=== PATIENT | female | born 1980 | race Caucasian/White ===

== ENCOUNTER 2018-09-03 10:19 | Emergency (ER) | payer OTHER ==
[2018-09-03] MEDS ORDERED: Ondansetron PF 4 MG/2 ML Vial ONE (11:50)
[2018-09-03 11:57] LABS: #Basophils 0.1 thou/uL (0.0-0.2); #Eosinphils 0.4 thou/uL (0.0-0.7); #Lymphocytes 2.7 thou/uL (1.20-3.40); #Monocytes 0.6 thou/uL (0.11-0.59); #Neutrophils 10.9 thou/uL (1.40-6.50); %Basophils 0.7 % (0.0-1.0); %Eosinophils 2.9 % (0.0-10.0); %Lymphocytes 18.1 % (21.0-51.0); %Monocytes 3.9 % (0.0-10.0); %Neutrophils 74.4 % (42.0-75.0); Hemoglobin 15.2 g/dL (12.0-16.0); Mean Corpuscular HGB CONC 33.7 g/dL (32.0-36.0); Mean Corpuscular Hemoglobin 28.5 pg (27.0-31.0); Mean Corpuscular Volume 84.5 fL (78.0-98.0); Platelet Count 258 thou/uL (130-400); RBC Distribution Width 13.7 % (11.5-14.5); Red Blood Cell (RBC) Count 5.35 mill/uL (4.20-5.40); White Blood Cell (WBC) Count 14.6 thou/uL (4.8-10.8)
[2018-09-03 12:05] LABS: BHCG - Serum Negative (NEGATIVE); Pregs Control Background? CLEAR/WHITE (CLR/WHITE); Pregs Control Bar Appear? YES (CONTROL BAR)
[2018-09-03 12:10] LABS: Bilirubin Small (Negative); Blood, Urine Negative (Negative); Clarity CLOUDY (Clear); Glucose, Urine (Dipstick) Negative (Negative); Leukocyte Small (Negative); Nitrite Negative (Negative); Protein, Urine (Dipstick) Trace mg/dL (Neg-Trace); Specific Gravity, Urine 1.021 (1.002-1.036)
[2018-09-03 12:11] LABS: Bacteria/HPF 1+ HPF (None Seen); Hyaline Casts/LPF 4-6 HYALINE CAST LPF (0-3 Hyaline); Pathc Cast-AUWi Flag 0.95 (0-2.49)
[2018-09-03] MEDS ORDERED: Dicyclomine 20 MG TAB ONE (12:35)
[2018-09-03 12:36] LABS: ALT (SGPT) 52 U/L (8-55); AST (SGOT) 34 U/L (5-34); Albumin 4.3 g/dL (3.5-5.0); Alkaline Phosphatase 86 U/L (40-150); Anion Gap 12 mmol/L (10-20); BUN (Urea Nitrogen) 12 mg/dL (7.0-18.7); Bilirubin, Total 1.1 mg/dL (0.2-1.2); Calc. Creatinine Clearance 0 mL/min (70-130); Calcium 9.7 mg/dL (7.8-10.44); Carbon Dioxide 28 mmol/L (22-29); Chloride 100 mmol/L (98-107); Estimated GFR-MDRD 69; Globulin 3.8 g/dL (2.4-3.5); Glucose 102 mg/dL (70-105); Lipase 17 U/L (8-78); Potassium 3.6 mmol/L (3.5-5.1); Protein, Total 8.1 g/dL (6.0-8.3); Sodium 136 mmol/L (136-145)
== END 2018-09-03 12:50 | disposition home or self-care (01) ==
LOC: ERS 10:19
DX: R11.2 Nausea with vomiting, unspecified (principal); R10.9 Unspecified abdominal pain; E03.9 Hypothyroidism, unspecified; F32.9 Major depressive disorder, single episode, unspecified
CPT/HCPCS: 80053; 81003; 81015; 83690; 84703; 85025; 87086; 96361; 96374; J2405

== ENCOUNTER 2018-09-03 18:02 | Observation (INO) | payer OTHER ==
[~2018-09-03 18:02] MED LIST: ISOVUE-370 76%-LOCM 1 ML ONE
[2018-09-03 21:12] LABS: #Basophils 0.1 thou/uL (0.0-0.2); #Eosinphils 0.5 thou/uL (0.0-0.7); #Lymphocytes 3.4 thou/uL (1.20-3.40); #Monocytes 0.8 thou/uL (0.11-0.59); #Neutrophils 12.6 thou/uL (1.40-6.50); %Basophils 0.4 % (0.0-1.0); %Eosinophils 3.1 % (0.0-10.0); %Lymphocytes 19.4 % (21.0-51.0); %Monocytes 4.7 % (0.0-10.0); %Neutrophils 72.4 % (42.0-75.0); Hemoglobin 14.3 g/dL (12.0-16.0); Mean Corpuscular HGB CONC 33.3 g/dL (32.0-36.0); Mean Corpuscular Hemoglobin 28.7 pg (27.0-31.0); Mean Corpuscular Volume 86.2 fL (78.0-98.0); Mean Platelet Volume 7.9 fL (7.4-10.4); Platelet Count 257 thou/uL (130-400); RBC Distribution Width 13.7 % (11.5-14.5); Red Blood Cell (RBC) Count 4.99 mill/uL (4.20-5.40); White Blood Cell (WBC) Count 17.4 thou/uL (4.8-10.8)
[2018-09-03] MEDS ORDERED: Ondansetron PF 4 MG/2 ML Vial ONE (21:25)
[2018-09-03 21:31] LABS: ALT (SGPT) 47 U/L (8-55); AST (SGOT) 30 U/L (5-34); Albumin 4.2 g/dL (3.5-5.0); Alkaline Phosphatase 84 U/L (40-150); Anion Gap 12 mmol/L (10-20); BUN (Urea Nitrogen) 12 mg/dL (7.0-18.7); Calc. Creatinine Clearance 0 mL/min (70-130); Calcium 9.5 mg/dL (7.8-10.44); Carbon Dioxide 27 mmol/L (22-29); Chloride 102 mmol/L (98-107); Estimated GFR-MDRD 62; Globulin 3.6 g/dL (2.4-3.5); Glucose 98 mg/dL (70-105); Lipase 162 U/L (8-78); Potassium 3.6 mmol/L (3.5-5.1); Protein, Total 7.8 g/dL (6.0-8.3); Sodium 137 mmol/L (136-145)
[2018-09-03] MEDS ORDERED: Morphine 4 MG/ML VIAL ONE (21:40)
[2018-09-03 22:00] LABS: Bilirubin Moderate (Negative); Blood, Urine Trace (Negative); Clarity CLOUDY (Clear); Glucose, Urine (Dipstick) Negative (Negative); Leukocyte Negative (Negative); Nitrite Negative (Negative); Protein, Urine (Dipstick) 100 mg/dL (Neg-Trace); Specific Gravity, Urine 1.025 (1.002-1.036)
[2018-09-03 22:03] LABS: Bacteria/HPF Rare-Few HPF (None Seen); Hyaline Casts/LPF 0-3 HYALINE CAST LPF (0-3 Hyaline); Pathc Cast-AUWi Flag 0.68 (0-2.49)
[2018-09-03 22:16] LABS: Yeast-AUWi Flag 43.8 (0-25.0)
[2018-09-03 22:17] LABS: Crystals/HPF RARE CA OXALATE HPF (Negative); RBC/HPF 0-3 HPF (0-3); Yeast-All Forms None Seen HPF (None Seen)
[2018-09-03] MEDS ORDERED: Piperacillin/Tazobactam 4.5 GM VIAL ONE (22:35)
[2018-09-03] MEDS ORDERED: Sodium Chloride 0.9% 100 ML ONE (22:35)
--- NOTE | 2018-09-03 23:39 | CT ---
CT ABDOMEN AND PELVIS WITH CONTRAST: History: Epigastric abdominal pain. Comparison: None. FINDINGS: The lung bases are clear. No pericardial effusion. There appears to be diffuse hepatic steatosis. The spleen is enlarged measuring 15 cm in length. There is an abnormal round, what appears to be a lymph node, in the anterior pararenal space measurin g 2.2 cm in size. There is some mucosal edema throughout the terminal ileum, distal ileum, sigmoid co claire, descending colon and cecum. There appears to be small diverticula of the cecum and ascending col on and much less likely small foci of free air as well as foci of gas which do abutt the wall of the respective bowel. No free air under the transverse fascia is appreciated. Moderate volume of free flu id in the dependent pelvis. Numerous small periaortic lymph nodes are present. Increased mesenteric fat of the distal ileum. The celiac trunk and superior mesenteric arteries are patent. IMPRESSION: 1. Severe distal ileum, terminal ileum, sigmoid colon, inflammation suggesting ileitis and colitis. G iven these findings and patient age, findings are concerning for inflammatory bowel disease such as C rohn's. There is increased mesenteric fat, hypermia, as well as edema within the mesenteric folds, as well as a moderate volume of free fluid in the pelvis. 2. Small foci of gas adjacent to the terminal ileum, axial image 81, coronal image 77 abut the serosa and reflect a small diverticulum with indwelling gas. No definite free fluid is appreciated although a small micro perforation is a possibility near the distal terminal ileum. Follow up examination is recommended. 3. Abnormally enlarged 2.2 cm anterior right perirenal lymph node may be reactive. Follow up imaging is recommended. 4. Mild splenomegaly. 5. Diffuse hepatic steatosis. 6. Patent proximal superior mesenteric artery. POS: [facility]
[2018-09-04] MEDS ORDERED: Ondansetron PF 4 MG/2 ML Vial IVP PRN ×2 (02:12→12:59)
[2018-09-04] MEDS: Morphine 4 MG/ML VIAL SLOW IVP PRN ×4 (02:34→19:54)
[2018-09-04] MEDS: Sodium Chloride 0.9% 1,000 ML IV SCH ×2 (02:35→10:43)
[2018-09-04 03:44] VITALS: BMI 58.2
[2018-09-04] MEDS ORDERED: Piperacillin/Tazobactam 3.375 GM in Sodium Chloride 0.9% 100 ML IVPB SCH (06:00)
[2018-09-04] MEDS ORDERED: Morphine 4 MG/ML VIAL SLOW IVP PRN (12:59)
[2018-09-04] MEDS: D5 1/2 NS w/20 mEq KCL 1,000 ML IV SCH (14:32)
[2018-09-04] MEDS: Piperacillin/Tazobactam 3.375 GM in Sodium Chloride 0.9% 100 ML IVPB SCH ×2 (14:33→19:53)
--- NOTE | 2018-09-04 14:51 | HP ---
CHIEF COMPLAINT: Abdominal pain. HISTORY OF PRESENT ILLNESS: Ms. Abreu is a 38-year-old woman with abdominal pain, nausea, vomiting, and diarrhea since Monday. She states that she started feeling bad on Monday morning with crampy periumbilical abdominal pain. She had several episodes of nonbloody diarrhea and also threw out several times. On the next day, her symptoms continued, although the diarrhea slowed down. She was still throwing up. She did not really have any high fevers or chills, but the crampy pain was becoming more severe. Yesterday the pain was bad enough, she decided to come to the emergency room. She was sent home with an antispasmodics, which did not help, so she returned to the emergency room that evening, at which time, she underwent a CT scan, which showed inflammatory changes in both the small and large intestine. An air pocket outside of the terminal ileum was felt to either be a diverticulum or contained perforation, but she did not have any free air. Her lipase was mildly elevated and her white count was elevated as well. So, she was placed on IV antibiotics and admitted for observation. She states that today the nausea is better, but the pain still comes back after the morphine wears off. Currently, she is quite comfortable; however, and she states that she is definitely feeling better today compared to yesterday. She denies any similar episodes in the past and has otherwise been fairly healthy. She does not have any chronic diarrhea or abdominal problems. PAST MEDICAL HISTORY: Hypothyroidism, morbid obesity, and obstructive sleep apnea. PAST SURGICAL HISTORY: Ankle surgery and empyema. No abdominal surgeries. SOCIAL HISTORY: The patient drinks rarely and not to excess. She denies any drug use and does not smoke. OUTPATIENT MEDICATIONS: None. She is supposed to be on Synthroid, but moved here last fall and has not established care with the primary care doctor. So, she has not taken her Synthroid since about March. ALLERGIES: NO KNOWN DRUG ALLERGIES. INPATIENT MEDICATIONS: Include; 1. Zosyn. 2. Zofran. 3. Morphine. PHYSICAL EXAMINATION: VITAL SIGNS: The patient has been afebrile since her admission, heart rate 71, respirations 24, 96% saturated on 2 L nasal cannula, and blood pressure 121/74. GENERAL: Reveals a morbidly obese young woman, in no acute distress. BMI of 58. HEENT: Unremarkable. NECK: Supple without lymphadenopathy or thyroid nodules. HEART: Regular in its rate and rhythm. Heart sounds and breath sounds are both very distant due to body habitus. ABDOMEN: Reveals slight hyperactive bowel sounds. She has diffuse mild tenderness to palpation without rigidity, rebound, or guarding. No palpable masses or hernias. EXTREMITIES: Warm and well perfused without edema. NEURO: No focal deficits. PSYCHIATRIC: Alert, oriented, and appropriate. LABORATORY DATA: White count is mildly elevated at 17 and lipase is mildly elevated at 162. Other LFTs are unremarkable and electrolytes are normal. CT images are reviewed, although the quality is somewhat poor due to body habitus. I do agree with the written report, it shows mild inflammatory changes of both small and large intestine and the finding that the distal ileum is most consistent with a diverticulum. ASSESSMENT AND PLAN: Enteritis/colitis. The radiologist was concerned about inflammatory bowel disease being within the differential, but the patient does not have any preceding or chronic gastrointestinal complaints. I feel that this is most likely infectious or inflammatory and more likely viral than not. Her nausea has resolved. So, I am going to start her on some clear liquids, but continue the antibiotics for now. I have asked Gastroenterology to take a look at her, but do not feel that there is any need for acute intervention. If her symptoms resolve, she will likely be discharged home in the near future. Job ID: [id number]
--- NOTE | 2018-09-04 15:22 | ULT ---
RIGHT UPPER QUADRANT ULTRASOUND: INDICATION: Elevated liver function tests. COMPARISON: Correlation is made to CT of 09/03/2018. FINDINGS: The liver shows mild increased echogenicity suggesting fatty infiltration consistent with the CT find ings. The gallbladder is mildly distended. There is at least 1 echogenic gallstone seen in the neck of the gallbladder. This measures approximately 2 cm. The common bile duct is normal caliber. Gallbladder wall is normal thickness. Pancreas is partially obscured but appears unremarkable as imaged. The right kidney is imaged and appears unremarkable. IMPRESSION: 1. Cholelithiasis. 2. Mild hepatic steatosis. POS: [facility]
--- NOTE | 2018-09-04 19:37 | CON ---
DATE OF CONSULTATION: 09/04/2018 REASON FOR CONSULTATION: Nausea, vomiting, diarrhea, and abnormal CAT scan of the abdomen and pelvis. HISTORY OF PRESENT ILLNESS: Ms. Abreu is a very pleasant 38-year-old, who initially came to the emergency room yesterday morning for nausea, vomiting, and abdominal pain, was treated symptomatically and discharged home with some Bentyl and Zofran. There was really no diagnosis on the discharge summary, but they have noted lot of things were ruled out. It seems that she was felt to have an uncomplicated gastroenteritis. She returned; however, with persistent symptoms yesterday evening mainly with mid abdominal cramping, severe periumbilical cramping, inability to hold anything down with nausea, vomiting, and loose stools. She has stable vital signs, but underwent a CAT scan that showed some inflammatory changes in the ileum and cecum, possibly microperforation and she was admitted to General Surgery after being started on antibiotics. Talked with the patient, she states that she was in normal state of health with no prior or antecedent abdominal problems when on the early in the morning of Monday, the , she woke with severe periumbilical abdominal cramping and then had a couple episodes of nonbloody diarrhea, which became progressively looser and had several episodes of vomiting until she began to have dry heaves. She had no high fever or chills. She notes that she had felt fine when she went to bed Monday night and she had eaten a [employer] for dinner that night. She had no sick contacts at home with her and 2 children, so she thought she maybe just got some food poisoning, although when she could not get comfortable and still was sick through all day Monday and Monday, she came to the hospital on Monday morning. She got some IV fluids and antispasmodics, but when she was not having improvement, she came back last night. She had a CAT scan that showed inflammatory changes in the terminal ileum and cecal area. She also has some adenopathy in this area as well. She had elevated white count about 17,000. She was placed on IV fluids, antibiotics, and admitted. Presently, she states that nausea is much better. She is tolerating clear liquids this evening. She does have some pain as morphine wears off. She has not had anything like this in the past. She has no history of arthralgias, rashes, or myalgias. No family history of inflammatory bowel disease or Crohn disease in herself or family members. PAST MEDICAL HISTORY: Hypothyroidism, obesity, and sleep apnea. PAST SURGICAL HISTORY: Ankle surgery and empyema. No prior abdominal surgeries. SOCIAL HISTORY: The patient drinks rarely and not to excess less than once a month. Denies drug use. She does not smoke. MEDICATIONS: At home, she is not taking anything. She supposed to take Synthroid, but she has been off that since March. ALLERGIES: NONE KNOWN. INPATIENT MEDICATIONS: Inpatient, she has received; 1. Zofran. 2. Zosyn. 3. IV fluids. 4. Some morphine. REVIEW OF SYSTEMS: RESPIRATORY: Negative. CARDIAC: Negative. : Negative. GENERAL: Negative for fever, rashes, myalgias, or weight loss. Before this started, she was having no change in bowel function, nausea, vomiting, abdominal pain, hematemesis, melena, or hematochezia. PHYSICAL EXAMINATION: GENERAL: The patient is resting comfortably in bed. She is actually getting up walking around. She is overweight. She is resting comfortably in bed. VITAL SIGNS: Temperature, she has been afebrile since admission, she is 98. Pulse is 82 and blood pressure is 130/79. HEENT: Oropharynx, no lesions. Oropharynx is moist. NECK: Supple without any adenopathy. LUNGS: Clear. HEART: Regular rate and rhythm. No rubs, gallops, or murmurs. ABDOMEN: Soft and obese. There is no palpable hepatosplenomegaly. There is no rebound. There is no guarding. EXTREMITIES: No clubbing, cyanosis, or edema. LABORATORY STUDIES: White count is 2100 and last night was 17.4, hemoglobin was 14, and platelet count 257. White count had been 14 at 11 on the . Comprehensive metabolic profile was normal with lipase of 162 at 2100 hours last night and 17 at 11:30 yesterday afternoon. Urinalysis showed white blood cells and possible squamous cells. Microbiology; urine culture showed skin humaira. No stool samples were obtained. ASSESSMENT: Acute onset nausea, vomiting, diarrhea, and severe abdominal pain with associated inflammatory changes in the cecum and ileum region. I have reviewed the patient's films and also some inflammation in the sigmoid colon. It appears similar findings have increased mesenteric fat hyperemia and some adenopathy raise concern for possible Crohn disease, but the acute presentation and the lack of any antecedent symptoms or signs of anemia makes this less likely. There is a small foci of gas to the terminal ileum and a small diverticulum in this area. Diverticulitis in the right colon is not regular. However, 1 factor that raises concern for possible more chronic process is the fact that she had a 2.2 cm anterior right perirenal lymph node and some mild splenomegaly. RECOMMENDATIONS: At this time, we will go and continue the IV fluids and IV antibiotics. I would continue to monitor her labs. We will check a CBC again tomorrow. If she has any decompensation of abdominal status, she may need an exploratory laparotomy, but I think that is unlikely to happen and would not recommend urgent endoscopy with questionable signs of free air. If there is that much inflammation in abdomen, it could cause perforation. We will follow along with you at this point in time and further course will determine further recommendations and treatment. Job ID: [id number]
[2018-09-04] MEDS: Acetaminophen 1,000 MG in Premix Bag 1 BAG IVPB PRN (19:53)
[2018-09-04] MEDS: Famotidine/PF 20 mg/2ml Vial SLOW IVP SCH (20:01)
[2018-09-05] MEDS: Piperacillin/Tazobactam 3.375 GM in Sodium Chloride 0.9% 100 ML IVPB SCH ×2 (02:20→08:47)
[2018-09-05] MEDS: D5 1/2 NS w/20 mEq KCL 1,000 ML IV SCH ×5 (02:32→22:24)
[2018-09-05] MEDS: Morphine 4 MG/ML VIAL SLOW IVP PRN ×2 (04:54→22:20)
[2018-09-05] MEDS: Acetaminophen 1,000 MG in Premix Bag 1 BAG IVPB PRN (04:54)
[2018-09-05 06:58] LABS: #Basophils 0.1 thou/uL (0.0-0.2); #Eosinphils 0.4 thou/uL (0.0-0.7); #Lymphocytes 1.7 thou/uL (1.20-3.40); #Monocytes 0.5 thou/uL (0.11-0.59); #Neutrophils 6.2 thou/uL (1.40-6.50); %Basophils 0.8 % (0.0-1.0); %Eosinophils 4.8 % (0.0-10.0); %Lymphocytes 18.8 % (21.0-51.0); %Monocytes 5.7 % (0.0-10.0); %Neutrophils 69.9 % (42.0-75.0); Hemoglobin 11.8 g/dL (12.0-16.0); Mean Corpuscular Hemoglobin 28.3 pg (27.0-31.0); Mean Corpuscular Volume 88.5 fL (78.0-98.0); Mean Platelet Volume 8.2 fL (7.4-10.4); Platelet Count 185 thou/uL (130-400); RBC Distribution Width 13.7 % (11.5-14.5); Red Blood Cell (RBC) Count 4.16 mill/uL (4.20-5.40); White Blood Cell (WBC) Count 8.8 thou/uL (4.8-10.8)
[2018-09-05 07:26] LABS: ALT (SGPT) 29 U/L (8-55); AST (SGOT) 19 U/L (5-34); Albumin 3.4 g/dL (3.5-5.0); Alkaline Phosphatase 64 U/L (40-150); Anion Gap 11 mmol/L (10-20); BUN (Urea Nitrogen) 9 mg/dL (7.0-18.7); Bilirubin, Total 0.9 mg/dL (0.2-1.2); Calc. Creatinine Clearance 243 mL/min (70-130); Calcium 8.4 mg/dL (7.8-10.44); Carbon Dioxide 25 mmol/L (22-29); Chloride 104 mmol/L (98-107); Estimated GFR-MDRD 72; Globulin 2.9 g/dL (2.4-3.5); Glucose 110 mg/dL (70-105); Lipase 13 U/L (8-78); Potassium 3.6 mmol/L (3.5-5.1); Protein, Total 6.3 g/dL (6.0-8.3); Sodium 136 mmol/L (136-145)
[2018-09-05] MEDS: Famotidine/PF 20 mg/2ml Vial SLOW IVP SCH ×2 (08:43→20:08)
--- NOTE | 2018-09-05 14:28 | PRG ---
DATE OF SERVICE: 09/05/2018 SUBJECTIVE: Ms. Abreu feels much better. She is getting an appetite. She has no fever. She is weaning off morphine and Tylenol. OBJECTIVE: VITAL SIGNS: Temperature is 97, pulse 60, respirations 24, and O2 saturation 93%. LUNGS: Decreased breath sounds at the bases. HEART: Regular rhythm. ABDOMEN: Soft and nontender. She is obese. There is no rebound or guarding. LABORATORY DATA: White count 8.8, hemoglobin 11.8, platelet count 185. Sodium 136, potassium 3.6, BUN and creatinine 9 and 0.88. TSH was 11. ASSESSMENT: 1. Acute gastroenteritis. This seems probably to be infectious gastroenteritis. I think it is less likely that she has a diverticulitis or Crohn's, although that is possible, her presentation was that more suggestive of acute infectious gastroenteritis, however. 2. Some drop in O2 saturation. She is going to start clear liquids today. We will go and drop her IV fluids as her renal function is stable and her white count has come down. 3. Agree with continuing antibiotics, weaning her morphine, and advancing diet slowly. We will follow along with you. Job ID: [id number]
[2018-09-05] MEDS: metroNIDAZOLE 500 MG TAB PO SCH ×2 (14:41→20:07)
[2018-09-05] MEDS ORDERED: traMADol HCl 50 MG TAB PO PRN ×2 (15:04)
[2018-09-05] MEDS ORDERED: Ondansetron ODT 4 MG TAB PO PRN (15:05)
[2018-09-05] MEDS: Ondansetron PF 4 MG/2 ML Vial SLOW IVP PRN ×2 (15:34→22:22)
--- NOTE | 2018-09-05 16:10 | PDOC.GSPN ---
Surgery Progress Note: Subj - Subjective Narrative: Patient is feeling better today. She is tolerating a clear liquid diet but doesn 't really feel hungry. She states that when she does eat it makes her stomach feel unsettled. Her pain has significantly improved. Abdomen is only slightly tender to palpation, much better than yesterday. Lipase is back to normal and white count is normal. She did have gallstones on ultrasound. Assessment/plan: Abdominal pain likely due to enteritis/colitis. Responding to medical management. We'll switch to oral antibiotics today. Likely discharge home tomorrow if she continues to improve. She does have gallstones, but I don' t think this is likely the cause of her symptoms. We can address this at a later date. She is aware that she has untreated hypothyroidism, and is planning to establish care with primary care after discharge to manage this. I will start her on low-dose Synthroid. Surgery Progress Note: Obj - Vital signs Vital signs: Vital Signs - Most Recent Temp Pulse Resp BP Pulse Ox 97.7 F 69 16 156/90 H 97 09/05/18 15:33 09/05/18 15:33 09/05/18 15:33 09/05/18 15:33 09/05/18 15:33 Surgery Progress Note: Results - Labs Result Diagrams: 09/05/18 06:13 09/05/18 06:13 Lab results: Laboratory Results - last 24 hr 09/05/18 09/05/18 09/05/18 06:13 06:13 06:13 WBC 8.8 RBC 4.16 L Hgb 11.8 L Hct 36.8 MCV 88.5 MCH 28.3 MCHC 32.0 RDW 13.7 Plt Count 185 MPV 8.2 Neutrophils % 69.9 Lymphocytes % 18.8 L Monocytes % 5.7 Eosinophils % 4.8 Basophils % 0.8 Neutrophils # 6.2 Lymphocytes # 1.7 Monocytes # 0.5 Eosinophils # 0.4 Basophils # 0.1 Sodium 136 Potassium 3.6 Chloride 104 Carbon Dioxide 25 Anion Gap 11 BUN 9 Creatinine 0.88 Estimated GFR (MDRD) 72 Glucose 110 H Calcium 8.4 Total Bilirubin 0.9 AST 19 ALT 29 Alkaline Phosphatase 64 Serum Total Protein 6.3 Albumin 3.4 L Globulin 2.9 Albumin/Globulin Ratio 1.2 Lipase 13 TSH 3rd Generation 11.6253 H
[2018-09-05] MEDS: Ciprofloxacin 500 MG TAB PO SCH (20:08)
[2018-09-06] MEDS: Ciprofloxacin 500 MG TAB PO SCH ×2 (05:14→20:45)
[2018-09-06] MEDS: Levothyroxine Sodium 100 MCG TAB PO SCH (05:14)
[2018-09-06 05:31] LABS: #Basophils 0.1 thou/uL (0.0-0.2); #Eosinphils 0.4 thou/uL (0.0-0.7); #Lymphocytes 2.6 thou/uL (1.20-3.40); #Monocytes 0.6 thou/uL (0.11-0.59); #Neutrophils 5.9 thou/uL (1.40-6.50); %Basophils 0.8 % (0.0-1.0); %Eosinophils 4.4 % (0.0-10.0); %Lymphocytes 26.9 % (21.0-51.0); %Monocytes 6.4 % (0.0-10.0); %Neutrophils 61.5 % (42.0-75.0); Hemoglobin 10.9 g/dL (12.0-16.0); Mean Corpuscular HGB CONC 32.5 g/dL (32.0-36.0); Mean Corpuscular Hemoglobin 28.6 pg (27.0-31.0); Mean Platelet Volume 8.3 fL (7.4-10.4); Platelet Count 189 thou/uL (130-400); RBC Distribution Width 13.5 % (11.5-14.5); White Blood Cell (WBC) Count 9.5 thou/uL (4.8-10.8)
[2018-09-06] MEDS: Famotidine/PF 20 mg/2ml Vial SLOW IVP SCH ×2 (09:36→20:45)
[2018-09-06] MEDS: metroNIDAZOLE 500 MG TAB PO SCH ×3 (09:36→20:45)
[2018-09-06] MEDS: D5 1/2 NS w/20 mEq KCL 1,000 ML IV SCH (09:40)
--- NOTE | 2018-09-06 14:08 | PRG ---
DATE OF SERVICE: 09/06/2018 SUBJECTIVE: Ms. Abreu actually had a little more diarrhea and cramping today after advancing her diet. She ate some rome bread and some cucumbers. OBJECTIVE: VITAL SIGNS: Temperature is 98.4, pulse 57, blood pressure 162/80. ABDOMEN: Soft and nontender. LABORATORY DATA: White count is 9.5, hemoglobin is 10.9, platelet count 189. Comprehensive metabolic profile is normal. TSH is 11. ASSESSMENT: Gastroenteritis seemingly infectious. Despite the CT scan findings, the clinical picture does not look like diverticulitis or inflammatory bowel disease. Although, those are the issues to be considered. She has been slowly and steadily improving. She did have some exacerbation of diarrhea today after eating. I think that is probably just related to the amount of rough food she was eating her diet. RECOMMENDATIONS: 1. I have advised her to go and follow more of a bland low residue diet for now. 2. We will continue present treatment course and agree with keeping one more night before letting her go home, especially in light of the equivocal presentation with viral-like gastritis symptoms, but CAT scan changes with some inflammation, possibly of microperforation. 3. Agree with continuing antibiotics. We will follow along with you. Job ID: [id number]
--- NOTE | 2018-09-06 15:04 | PDOC.GSPN ---
Surgery Progress Note: Subj - Subjective Narrative: The patient was feeling really good until she tried solid food yesterday, at which point the severe crampy abdominal pain returned and she had multiple bouts of diarrhea. She has only been taking liquids today and has not had any recurrent symptoms. Vitals are normal. She has mild left-sided tenderness to palpation. Assessment/plan: Enteritis, still not tolerating diet. Continue clear liquids for now. Possible home tomorrow if able to advance diet. Stool studies ordered. Surgery Progress Note: Obj - Vital signs Vital signs: Vital Signs - Most Recent Temp Pulse Resp BP Pulse Ox 97.4 F L 56 L 20 160/91 H 95 09/06/18 11:44 09/06/18 11:44 09/06/18 11:44 09/06/18 11:44 09/06/18 11:44 Surgery Progress Note: Results - Labs Result Diagrams: 09/06/18 05:00 09/05/18 06:13 Lab results: Laboratory Results - last 24 hr 09/06/18 05:00 WBC 9.5 RBC 3.80 L Hgb 10.9 L Hct 33.4 L MCV 88.0 MCH 28.6 MCHC 32.5 RDW 13.5 Plt Count 189 MPV 8.3 Neutrophils % 61.5 Lymphocytes % 26.9 Monocytes % 6.4 Eosinophils % 4.4 Basophils % 0.8 Neutrophils # 5.9 Lymphocytes # 2.6 Monocytes # 0.6 H Eosinophils # 0.4 Basophils # 0.1
[2018-09-06] MEDS: Enoxaparin Sodium 40 MG/0.4 ML SYRINGE SC SCH (20:45)
[2018-09-07] MEDS: D5 1/2 NS w/20 mEq KCL 1,000 ML IV SCH (05:37)
[2018-09-07] MEDS: Ciprofloxacin 500 MG TAB PO SCH (05:38)
[2018-09-07] MEDS: Levothyroxine Sodium 100 MCG TAB PO SCH (05:38)
[2018-09-07] MEDS: Enoxaparin Sodium 40 MG/0.4 ML SYRINGE SC SCH (09:10)
[2018-09-07] MEDS: metroNIDAZOLE 500 MG TAB PO SCH (09:10)
[2018-09-07] MEDS: Famotidine/PF 20 mg/2ml Vial SLOW IVP SCH (09:10)
[2018-09-07 11:31] VITALS: BP 172/77; TEMP 98
--- NOTE | 2018-09-10 09:15 | DIS ---
DATE OF ADMISSION: 09/03/2018 DATE OF DISCHARGE: 09/07/2018 FINAL DIAGNOSES: 1. Enteritis/colitis. 2. Morbid obesity. 3. Hypothyroidism, untreated. 4. Obstructive sleep apnea. HISTORY: Ms. Abreu is a 38-year-old woman, who presented to the emergency room with abdominal pain, nausea, and vomiting. CT showed evidence of enteritis and colitis. There was some air outside of the lumen of the terminal ileum. It could not be determined if this was a contained perforation or diverticulum. She was admitted for IV antibiotics and improved in her symptomatology. When her diet was attempted to be advanced, initially, she had recurrence of her pain, so she was backed down to a clear liquid diet. However, the next time that her diet was advanced, she tolerated this. She was switched to oral antibiotics and discharged home with instructions to follow up in the Gastroenterology Clinic, as well as General Surgery. At the time of her discharge, she was nontender, nondistended, tolerating a regular low-fat diet and tolerating oral antibiotics. Of note, stool studies were unremarkable during this hospital stay and she was incidentally noted to have gallstones, but did not have any symptoms related to this. She has known hypothyroidism and her TSH is quite elevated. She was started on low-dose Synthroid and instructed to establish care with a primary care physician for followup of this. DISCHARGE MEDICATIONS: Include: 1. Ciprofloxacin. 2. Flagyl. 3. Synthroid. Job ID: [id number]
== END 2018-09-07 11:55 | disposition home or self-care (01) ==
LOC: ERS 18:02 → ERHOLD 22:14 → SURG A 09-04 01:42
PROVIDERS: ADMIT Surgery; ATTEND Surgery
DX: K52.9 Noninfective gastroenteritis and colitis, unspecified (principal); E03.9 Hypothyroidism, unspecified; G47.33 Obstructive sleep apnea (adult) (pediatric); E66.01 Morbid (severe) obesity due to excess calories; Z68.43 Body mass index [BMI] 50.0-59.9, adult; Z79.899 Other long term (current) drug therapy
CPT/HCPCS: 36415; 74177; 76705; 80053; 83630; 83690; 84443; 85025; 87045; 87046; 87324; 87449; 87899; 96361; 96365; 96366; 96372; 96375; 96376; G0378; J0131; J1650; J2270; J2405; J2543; J7050; Q9966; S0028

== ENCOUNTER 2021-03-01 09:48 | Emergency (ER) | payer OTHER ==
[2021-03-01] MEDS ORDERED: Dexamethasone 4 MG TAB ONE (10:59)
== END 2021-03-01 11:00 | disposition home or self-care (01) ==
LOC: ERS 09:48
DX: H66.92 Otitis media, unspecified, left ear (principal); I10 Essential (primary) hypertension; E03.9 Hypothyroidism, unspecified
CPT/HCPCS: 99283; J8540

== ENCOUNTER 2022-01-17 15:11 | Outpatient (CLI) | payer OTHER | END 2022-01-17 15:12 | disposition home or self-care (01) | LOC: BICMAMMO 15:11 | PROVIDERS: ATTEND Family Medicine | DX: Z12.31 Encounter for screening mammogram for malignant neoplasm of breast (principal) | CPT/HCPCS: 77063; 77067 ==